=== PATIENT | male | born 1945 | race Caucasian/White ===

== ENCOUNTER → 2016-10-21 | Outpatient (CLI) | payer OTHER, MEDICARE ==
[~2016-10-21] MED LIST: IOPAMIDOL (ISOVUE-300) 100 ML BTL IV ONE
[2016-10-21 15:36] LABS: CREATININE 1.2 mg/dL (0.7-1.3)
--- NOTE | 2016-10-21 17:27 | CT ---
CT Abdomen and Pelvis, Without and With Contrast History: Hematuria. Technique: Axial unenhanced images were obtained through the abdomen and pelvis. Axial contrast-enh anced images were obtained through the abdomen, with delayed images through the abdomen and pelvis fo llowing the uneventful intravenous administration of 90 mL Isovue-300. Dose reduction techniques wer e utilized. Comparison: None available. Findings: Abdomen: The lung bases are clear. Heart size is normal. There is a 2.9 cm posterior right hepatic cyst, with additional hypodensities in the liver, too-small -to-characterize, statistically likely to represent cysts. The gallbladder is decompressed. The spl een and pancreas are normal. A 1 cm right adrenal gland measures 8 Hounsfield units on the unenhance d series, consistent with a benign adenoma. The left adrenal gland is full, with an apparent 1.9 cm nodule measuring 5 Hounsfield units, consistent with an adenoma. There are approximately 14 stones i n the right kidney, measuring up to 3 mm. There is moderate obstructive uropathy in the right kidney and ureter secondary to a 6 mm stone at the right ureterovesical junction. Three nonobstructing sto naman in the left kidney measure 2 mm. Bilateral renal cysts are present. There are subcentimeter hyp odensities in the kidneys bilaterally, pay-khhbt-mi-characterize. With the exception of a distal rig ht ureteral stone, no filling defects are identified in the opacified portions of the collecting syst ems or ureters. The distal left ureter is poorly opacified. Moderate stool is present in the colon. Sigmoid diverticulosis is present, without evidence of diver ticulitis. The colon and small bowel are normal caliber, without evidence of obstruction. There is no free fluid or air. Mild atherosclerosis is present in a normal caliber aorta. No pathologically enlarged lymph nodes ar e identified. Degenerative change is present in the spine, with multilevel moderate spinal canal kerri rowing, most prominent at L3-L4. Pelvis: No filling defects are identified in the bladder. The prostate is enlarged, measuring 6.1 c m, indenting the base of the bladder. No pathologically enlarged lymph nodes are identified. No agg ressive osseous lesions are identified. Impression: 1. 6 mm stone at the right ureterovesical junction, with moderate obstructive uropathy. 2. Bilateral nephrolithiasis. 3. Diverticulosis, without evidence of diverticulitis. 4. Constipation. 5. Prostatic hypertrophy. 6. Degenerative change in the spine. 7. Additional findings, as above. Findings discussed with Micheal House M.D., on October 21, 2016 at 1656 hours. E:isak
== END ==
LOC: FIMAGING 14:38
PROVIDERS: ATTEND Internal Medicine
DX: N20.0 Calculus of kidney (principal); K57.90 Diverticulosis of intestine, part unspecified, without perforation or abscess without bleeding; K59.00 Constipation, unspecified; N40.0 Benign prostatic hyperplasia without lower urinary tract symptoms; N13.9 Obstructive and reflux uropathy, unspecified
CPT/HCPCS: 74178; Q9967

== ENCOUNTER → 2017-11-29 | Outpatient (CLI) | payer OTHER, MEDICARE | LOC: FIMAGING 14:16 | PROVIDERS: ATTEND Internal Medicine | DX: R90.82 White matter disease, unspecified (principal); G31.9 Degenerative disease of nervous system, unspecified ==

== ENCOUNTER → 2017-12-06 | Outpatient (CLI) | payer OTHER, MEDICARE | LOC: BHFA 10:00 | PROVIDERS: ATTEND Internal Medicine Cardiovascular Disease | DX: Z95.2 Presence of prosthetic heart valve (principal) ==

== ENCOUNTER → 2018-06-01 | Outpatient (CLI) | payer OTHER, MEDICARE | LOC: BHFA 08:30 | PROVIDERS: ATTEND Internal Medicine Cardiovascular Disease | DX: Z95.2 Presence of prosthetic heart valve (principal) ==

== ENCOUNTER → 2019-02-21 | Outpatient (CLI) | payer OTHER, MEDICARE | LOC: FIMAGING 17:32 ==

== ENCOUNTER → 2019-02-27 | Outpatient (CLI) | payer OTHER, MEDICARE | LOC: FCPNEURO 13:56 ==